=== PATIENT | male | born 1950 | race Caucasian/White ===

== ENCOUNTER 2019-07-14 13:33 | Inpatient (IN) | payer OTHER, MEDICARE ==
[~2019-07-14] VITALS: Ht 172.7 cm; Wt 101.6 kg
[~2019-07-14 13:33] MED LIST: ALBIPROI INH; ASPI81CH PO; B Complex1 EAC2 PO; GLIP10 PO; INSDETPEN SC; METF500 PO; MULVITMIND PO; Milk Thistle150 MG PO; ZESTORETIC 20-121 E1 PO; Zestril40 MG PO
[2019-07-14] MEDS ORDERED: METO2.5 PO (13:47)
[2019-07-14] MEDS ORDERED: AMLO10 PO (13:47)
[2019-07-14] MEDS ORDERED: LISI20 PO (13:47)
[2019-07-14] MEDS ORDERED: FINA5 PO (13:47)
[2019-07-14] MEDS ORDERED: THEO300ERA PO (13:48)
[2019-07-14] MEDS ORDERED: Flomax0.4 MG PO (13:48)
[2019-07-14] MEDS ORDERED: FLUT1DIS5 INH (13:48)
[2019-07-14] MEDS ORDERED: FURO40 PO (13:48)
[2019-07-14] MEDS ORDERED: POTCHL20ER PO (13:49)
[2019-07-14] MEDS ORDERED: MILK OF MA400 MG/5 M PO (13:49)
[2019-07-14] MEDS ORDERED: METF500 PO (13:49)
[2019-07-14] MEDS ORDERED: BISA10S (13:49)
[2019-07-14] MEDS ORDERED: ALBU90OI (13:49)
[2019-07-14] MEDS ORDERED: Humalog100 UNIT/1 SC (13:50)
[2019-07-14 14:30] LABS: BASOPHILS ABSOLUTE AUTO 0.03 K/mm3 (0.00-0.23); BASOPHILS PERCENT AUTO 0 % (0-2); EOSINOPHILS ABSOLUTE AUTO 0.26 K/mm3 (0.00-0.68); EOSINOPHILS PERCENT AUTO 2 % (0-6); Hematocrit 33.5 % (37.0-53.0); Hemoglobin 10.4 g/dL (13.5-17.5); IMMATURE GRAN ABSOLUTE AUTO 0.18 K/mm3 (0.00-0.10); IMMATURE GRAN PERCENT AUTO 1 % (0-1); LYMPHOCYTES ABSOLUTE AUTO 1.89 K/mm3 (0.84-5.20); LYMPHOCYTES PERCENT AUTO 11 % (21-46); MONOCYTES ABSOLUTE AUTO 0.95 K/mm3 (0.16-1.47); MONOCYTES PERCENT AUTO 6 % (4-13); Mean Corpuscular Volume 93 fL (80-100); Mean Platelet Volume 10.5 fL (9.1-12.4); NEUTROPHILS ABSOLUTE AUTO 13.26 K/mm3 (1.96-9.15); NEUTROPHILS PERCENT AUTO 80 % (41-73); Platelet Count 388 K/mm3 (150-400); RDW Coefficient Variation 14.1 % (11.7-14.2); RDW Standard Deviation 48.2 fL (35.1-46.3); Red Blood Cell Count 3.59 M/mm3 (4.30-5.90); White Blood Cell Count 16.57 K/mm3 (4.00-11.30)
[2019-07-14 14:50] LABS: Albumin/Globulin Ratio 0.6 (0.8-1.8); Bilirubin, Total 0.2 mg/dL (0.1-1.0); Bun/Creatinine Ratio 34.6 (12.0-20.0); Calcium, Blood 9.2 mg/dL (8.5-10.1); Creatinine, Blood 2.11 mg/dL (0.60-1.20); Globulin, Blood 5.1 g/dL (2.2-4.0); Potassium, Blood 4.6 mmol/L (3.5-5.5); Total Protein, Blood 8.1 g/dL (6.4-8.2)
[2019-07-14 17:20] LABS: Source, Urine Voided
[2019-07-14 17:24] LABS: Bilirubin, Urine Neg (Neg); Blood, Urine Neg (Neg); Glucose Qualitative, Urine Neg (Neg); Ketones, Urine Neg (Neg); Leukocyte Esterase, Urine Neg (Neg); Nitrite, Urine Neg (Neg); Protein, Urine Neg (Neg); Urobilinogen, Urine NORM (Normal)
[2019-07-14 17:29] LABS: Appearance, Urine Clear (Clear); Color, Urine Yellow (P-Yellow)
[2019-07-14] MEDS ORDERED: BASAGLAR K100 UNIT/2 SC (18:22)
--- NOTE | 2019-07-14 20:30 | NUR ---
PT ARRIVED TO ROOM FORM ER VIA STRETCHER. TRANSFERRED TO BED VIA SLIDER SHEET AND ASSIST X4. LEFT HEMIPLEGIA. STATES HE IS BARLEY ABLE TO STAND TO AT [facility]. RECORDS FROM SNF AVAIL AND MEDS UPDATED. MEDS GIVEN ORDERED. IV'S FLUSHED AND PATENT. PT ASSISTED WITH URINAL. 100CC CLEAR YELLOW URINE OUT. PT HUNGRY BUT IS NPO. LIGHTS OFF PER REQUEST AND CALL LIGHT IN REACH.
[2019-07-14] MEDS ORDERED: THEO300ERC PO (22:36)
[2019-07-15 03:49] LABS: Hematocrit 32.7 % (37.0-53.0); Mean Corpuscular HGB 28.8 pg (26.0-34.0); Mean Corpuscular HGB Conc 30.6 g/dL (31.5-36.5); Mean Corpuscular Volume 94 fL (80-100); Mean Platelet Volume 9.9 fL (9.1-12.4); Platelet Count 371 K/mm3 (150-400); RDW Coefficient Variation 14.4 % (11.7-14.2); RDW Standard Deviation 49.4 fL (35.1-46.3); Red Blood Cell Count 3.47 M/mm3 (4.30-5.90); White Blood Cell Count 17.25 K/mm3 (4.00-11.30)
[2019-07-15 04:07] LABS: Albumin/Globulin Ratio 0.6 (0.8-1.8); Bilirubin, Total 0.2 mg/dL (0.1-1.0); Bun/Creatinine Ratio 30.9 (12.0-20.0); Creatinine, Blood 2.2 mg/dL (0.60-1.20); Potassium, Blood 4.5 mmol/L (3.5-5.5)
--- NOTE | 2019-07-15 07:10 | NUR ---
PT SLEPT SECOND HALF OF SHIFT. USED CALL LIGHT MORE THAN APPROPRIATE. HAS BEEN NPO SINCE ARRIVAL TO PCU. NO SIG CHANGES. NO C/O OF N/V, NO STOOL OR DIARRHEA. C/O OF BEING HUNGRY. OCCASIONAL ICE CHIPS PROVIDED TO WET MOUTH. VSS. CBG WNL. BEDSIDE REPORT GIVEN TO RO RITTER.
[2019-07-15 09:48] LABS: Adenovirus Not Detected (NOT DETECT); Bordetella pertussis Not Detected (NOT DETECT); Chlamydophila pneumoniae Not Detected (NOT DETECT); Coronavirus 229E Not Detected (NOT DETECT); Coronavirus HKU1 Not Detected (NOT DETECT); Coronavirus NL63 Not Detected (NOT DETECT); Coronavirus OC43 Not Detected (NOT DETECT); Human Metapneumovirus Not Detected (NOT DETECT); Human Rhinovirus/Enterovirus Not Detected (NOT DETECT); Influenza A Not Detected (NOT DETECT); Influenza A/2009-H1 Not Detected (NOT DETECT); Influenza A/H1 Not Detected (NOT DETECT); Influenza A/H3 Not Detected (NOT DETECT); Influenza B Not Detected (NOT DETECT); Mycoplasma pneumoniae Not Detected (NOT DETECT); Parainfluenza Virus 1 Not Detected (NOT DETECT); Parainfluenza Virus 2 Not Detected (NOT DETECT); Parainfluenza Virus 3 Not Detected (NOT DETECT); Parainfluenza Virus 4 Not Detected (NOT DETECT); Respiratory Syncytial Virus Not Detected (NOT DETECT)
--- NOTE | 2019-07-15 17:39 | NUR ---
SHIFT SUMMARY NO ACUTE CHANGES NOTED FROM ASSESSMENT. PT HAD SPEECH EVAL DONE THIS AM. HE IS NOW ON NECTAR THICK FLUIDS W/PUREE TECTURES. PT WAS STARTED ON CLEAR FLUIDS AND ADVANCED TO FULL LIQUIDS THIS AFTERNOON. HE DENIES NAUSEA/PAIN, NO STOOLS NOTED TODAY, CONDOM CATH WAS PLACED PER PT REQUEST/MD ORDERS. PT REMAINS ON 3L O2 VIA NC, LUNG SOUNDS ARE COARSE, SATS >92%. PT EDUCATED ON DIET RESTRICTIONS, SWALLOW PRECAUTIONS AND REASON FOR TREATMENTS, HE CONTINUES TO TO NOT FOLLOW RESTRICTIONS AND ASKS FOR FOOD CONSTANTLY. MEDICAL LAB SPECIALIST HAS BEEN INSTRUCTED TO LIMIT PT. WCTM AND REPORT TO NOW RN. CALL LIGHT IN REACH AT THIS TIME.
--- NOTE | 2019-07-15 19:30 | NUR ---
REPORT REC'D FROM RO RITTER. PT LYING IN BED, LIGHTS OFF AND TV ON. IV SL'D. DENIES ANY NEEDS AT THIS TIME. VSS. ASSESSMENT NOTED. BED ALARM IN PLACE. CALL LIGHT IN REACH.
[2019-07-16 04:14] LABS: BASOPHILS ABSOLUTE AUTO 0.02 K/mm3 (0.00-0.23); BASOPHILS PERCENT AUTO 0 % (0-2); EOSINOPHILS PERCENT AUTO 0 % (0-6); Hemoglobin 9.9 g/dL (13.5-17.5); IMMATURE GRAN ABSOLUTE AUTO 0.18 K/mm3 (0.00-0.10); IMMATURE GRAN PERCENT AUTO 1 % (0-1); LYMPHOCYTES ABSOLUTE AUTO 0.73 K/mm3 (0.84-5.20); LYMPHOCYTES PERCENT AUTO 5 % (21-46); MONOCYTES ABSOLUTE AUTO 0.27 K/mm3 (0.16-1.47); MONOCYTES PERCENT AUTO 2 % (4-13); Mean Corpuscular HGB 28.5 pg (26.0-34.0); Mean Corpuscular HGB Conc 30.9 g/dL (31.5-36.5); Mean Corpuscular Volume 92 fL (80-100); Mean Platelet Volume 10.3 fL (9.1-12.4); NEUTROPHILS ABSOLUTE AUTO 12.24 K/mm3 (1.96-9.15); NEUTROPHILS PERCENT AUTO 91 % (41-73); Platelet Count 368 K/mm3 (150-400); RDW Coefficient Variation 14.1 % (11.7-14.2); RDW Standard Deviation 47.7 fL (35.1-46.3); Red Blood Cell Count 3.47 M/mm3 (4.30-5.90); White Blood Cell Count 13.44 K/mm3 (4.00-11.30)
[2019-07-16 04:33] LABS: Bun/Creatinine Ratio 36.5 (12.0-20.0); Calcium, Blood 9.4 mg/dL (8.5-10.1); Creatinine, Blood 1.92 mg/dL (0.60-1.20); Potassium, Blood 4.5 mmol/L (3.5-5.5)
--- NOTE | 2019-07-16 05:49 | NUR ---
PT NO LONGER CONTACT ISO. GI PANEL CANCELLED D/T NO STOOL SINCE ARRIVAL. PT HAS NOT C/O N/V AND HAS HAD NO DIARRHEA OR STOOL SINCE ADMIT. HAS BEEN REC'ING ABX. ON ADMISSION, PT REPORTED THAT HE DID NOT GET OUT OF BED AT [facility] EXCEPT TO "BARELY STAND ENOUGH TO TURN AROUND INTO WHEELCHAIR". HAS BEEN "LIFT" STATUS ON ARRIVAL. BUT PT HAS BEEN GETTING HIMSELF TO BEDSIDE AND STANDING TO USE THE URINAL ALL NIGHT. THE ONLY TIME HE USES THE CALL LIGHT THIS SHIFT IS FOR SOMETHING FROM THE PANTRY. THE BED ALARM HAS REMAINED ON, HE CONT'S TO SET IT OFF. HE HAS BEEN TOLD IF IT CONT'S WE WILL PUT THAT THIRD RAIL BACK UP FOR SAFETY REASONS. PT SITTING UP IN BED WITH CUP OF ICE. AM MEDS GIVEN. PT DENIES ANY ADD'L NEEDS. [employer] BRIEF PROVIDED, FLOOR CLEANED OF URINE SPLATTER, BABY WIPES FOR LEGS. CALL LIGHT IN REACH. WILL CONT TO MONITOR, DOCUMENT ANY CHANGES AND REPORT TO DAY SHIFT RN.
[2019-07-16] MEDS ORDERED: ALBU2.5V5 (10:13)
[2019-07-16] MEDS ORDERED: LEVO750 PO (10:14)
[2019-07-16] MEDS ORDERED: PRED20 (10:14)
[2019-07-16] MEDS ORDERED: METR500 PO (10:14)
[2019-07-16] MEDS ORDERED: ACET325 PO (10:15)
--- NOTE | 2019-07-16 13:03 | NUR ---
DISCHARGE REPORT CALLED TO [facility]. ALL QUESTIONS ANSWERED. AWAITING TRANSPORT. BELONGINGS GATHERED AND WITH PATIENT.
== END 2019-07-16 13:29 | DRG 683 ==
LOC: ER 13:33 → PCU 18:29
PROVIDERS: Emergency Medicine; Internal Medicine; ADMIT Internal Medicine
DX: N17.9 Acute kidney failure, unspecified (principal); J44.1 Chronic obstructive pulmonary disease with (acute) exacerbation; K52.9 Noninfective gastroenteritis and colitis, unspecified; N18.3 Chronic kidney disease, stage 3 (moderate); E11.22 Type 2 diabetes mellitus with diabetic chronic kidney disease; I12.9 Hypertensive chronic kidney disease with stage 1 through stage 4 chronic kidney disease, or unspecified chronic kidney disease; E78.5 Hyperlipidemia, unspecified; F31.9 Bipolar disorder, unspecified; F43.10 Post-traumatic stress disorder, unspecified; B18.2 Chronic viral hepatitis C; Z87.891 Personal history of nicotine dependence; Z99.81 Dependence on supplemental oxygen
CPT/HCPCS: 0099U; 36415; 71045; 74177; 80048; 80053; 81003; 82947; 83605; 83690; 83880; 85025; 85027; 92610; 94640; 94760; 96365-59; 96375; 99285-25; A9270-GY; J1650; J1956; J2930; J7030; Q9967

== ENCOUNTER → 2019-07-21 | Outpatient (CLI) | payer MEDICARE ==
[~2019-07-21] MED LIST changes: +ACET325 PO; +ALBU2.5V5; +ALBU90OI; +AMLO10 PO; +BASAGLAR K100 UNIT/2 SC; +BISA10S; +FINA5 PO; +FLUT1DIS5 INH; +FURO40 PO; +Flomax0.4 MG PO; +Humalog100 UNIT/1 SC; +LEVO750 PO; +LISI20 PO; +METO2.5 PO; +METR500 PO; +MILK OF MA400 MG/5 M PO; +POTCHL20ER PO; +PRED20; +THEO300ERA PO; +THEO300ERC PO
[2019-07-21 12:50] LABS: Bun/Creatinine Ratio 28.6 (12.0-20.0); Creatinine, Blood 1.26 mg/dL (0.60-1.20); Potassium, Blood 3.1 mmol/L (3.5-5.5)
== END ==
LOC: LAB RH 06:00 → EDSTATUS 12:05 → LAB RH 12:06
PROVIDERS: Family Medicine
DX: I11.9 Hypertensive heart disease without heart failure (principal)
CPT/HCPCS: 36415; 80048

== ENCOUNTER → 2019-09-01 | Outpatient (CLI) | payer MEDICARE ==
[2019-09-01 14:09] LABS: Bilirubin, Urine Neg (Neg); Blood, Urine 4+ (Neg); Glucose Qualitative, Urine 4+ (Neg); Ketones, Urine Neg (Neg); Leukocyte Esterase, Urine Neg (Neg); Nitrite, Urine Neg (Neg); Protein, Urine Neg (Neg); Specific Gravity, Urine 1.005 (1.003-1.022); Urobilinogen, Urine NORM (Normal)
[2019-09-01 14:47] LABS: Appearance, Urine Clear (Clear); Color, Urine Pale Yellow (P-Yellow)
[2019-09-01 14:48] LABS: White Blood Cells, Urine 0-2 /hpf (0-5)
[2019-09-01 14:49] LABS: Bacteria Rare /hpf; Squamous Epithelial Cells Not Seen /hpf (Few)
== END | disposition home or self-care (01) ==
LOC: EDSTATUS 11:27 → LAB RH 13:20
PROVIDERS: Family Medicine
DX: N39.0 Urinary tract infection, site not specified (principal)
CPT/HCPCS: 81001

== ENCOUNTER → 2019-09-04 | Outpatient (CLI) | payer MEDICARE ==
[2019-09-04 12:34] LABS: Albumin, Blood 3.2 g/dL (3.4-5.0); Albumin/Globulin Ratio 0.6 (0.8-1.8); Bilirubin, Total 0.3 mg/dL (0.1-1.0); Bun/Creatinine Ratio 21.4 (12.0-20.0); Calcium, Blood 9.7 mg/dL (8.5-10.1); Creatinine, Blood 1.31 mg/dL (0.60-1.20); Potassium, Blood 2.8 mmol/L (3.5-5.5); Total Protein, Blood 8.2 g/dL (6.4-8.2)
== END | disposition home or self-care (01) ==
LOC: LAB RH 09:22 → EDSTATUS 11:03
PROVIDERS: Family Medicine
DX: E11.65 Type 2 diabetes mellitus with hyperglycemia (principal); R79.89 Other specified abnormal findings of blood chemistry
CPT/HCPCS: 80053

== ENCOUNTER → 2019-09-15 | Outpatient (CLI) | payer MEDICARE ==
[2019-09-15 14:57] LABS: Hematocrit 36.7 % (37.0-53.0); Hemoglobin 11.3 g/dL (13.5-17.5); Mean Corpuscular HGB 25.5 pg (26.0-34.0); Mean Corpuscular HGB Conc 30.8 g/dL (31.5-36.5); Mean Corpuscular Volume 83 fL (80-100); Mean Platelet Volume 10.2 fL (9.1-12.4); Platelet Count 458 K/mm3 (150-400); RDW Coefficient Variation 15.2 % (11.7-14.2); Red Blood Cell Count 4.43 M/mm3 (4.30-5.90)
== END | disposition home or self-care (01) ==
LOC: EDSTATUS 12:40 → LAB RH 14:41
PROVIDERS: Family Medicine
DX: E11.65 Type 2 diabetes mellitus with hyperglycemia (principal)
CPT/HCPCS: 83036; 85027

== ENCOUNTER → 2019-09-16 | Outpatient (CLI) | payer MEDICARE ==
[2019-09-16 09:31] LABS: BASOPHILS ABSOLUTE AUTO 0.03 K/mm3 (0.00-0.23); BASOPHILS PERCENT AUTO 0 % (0-2); EOSINOPHILS ABSOLUTE AUTO 0.16 K/mm3 (0.00-0.68); EOSINOPHILS PERCENT AUTO 1 % (0-6); Hematocrit 38.4 % (37.0-53.0); Hemoglobin 11.3 g/dL (13.5-17.5); IMMATURE GRAN ABSOLUTE AUTO 0.05 K/mm3 (0.00-0.10); IMMATURE GRAN PERCENT AUTO 0 % (0-1); LYMPHOCYTES PERCENT AUTO 19 % (21-46); MONOCYTES ABSOLUTE AUTO 0.82 K/mm3 (0.16-1.47); MONOCYTES PERCENT AUTO 7 % (4-13); Mean Corpuscular HGB 24.4 pg (26.0-34.0); Mean Corpuscular HGB Conc 29.4 g/dL (31.5-36.5); Mean Corpuscular Volume 83 fL (80-100); Mean Platelet Volume 9.9 fL (9.1-12.4); NEUTROPHILS ABSOLUTE AUTO 8.17 K/mm3 (1.96-9.15); NEUTROPHILS PERCENT AUTO 72 % (41-73); Platelet Count 443 K/mm3 (150-400); RDW Standard Deviation 45.5 fL (35.1-46.3); Red Blood Cell Count 4.64 M/mm3 (4.30-5.90); White Blood Cell Count 11.43 K/mm3 (4.00-11.30)
== END | disposition home or self-care (01) ==
LOC: LAB RH 08:41 → EDSTATUS 12:41
PROVIDERS: Family Medicine
DX: E11.65 Type 2 diabetes mellitus with hyperglycemia (principal); J44.1 Chronic obstructive pulmonary disease with (acute) exacerbation
CPT/HCPCS: 83036; 85025

== ENCOUNTER → 2019-10-19 | Outpatient (CLI) | payer MEDICARE | END | disposition home or self-care (01) | LOC: LAB RH 09:30 → EDSTATUS 11:55 | PROVIDERS: Family Medicine | DX: J44.1 Chronic obstructive pulmonary disease with (acute) exacerbation (principal) | CPT/HCPCS: 80198 ==

== ENCOUNTER → 2019-11-12 | Outpatient (CLI) | payer MEDICARE ==
[~2019-11-12] MED LIST changes: -ALBU2.5V5; +ALBU90OI INH; +BISA10S PR; +DOXY100 PO; +FLEET ENEMA133 ML PR; +MILK OF MA400 MG/51 PO; +[UNRECOGNIZED DRUG - OTHER] PO
[2019-11-12 19:24] LABS: Bilirubin, Urine Neg (Neg); Blood, Urine Neg (Neg); Glucose Qualitative, Urine Neg (Neg); Ketones, Urine Neg (Neg); Leukocyte Esterase, Urine Neg (Neg); Nitrite, Urine Neg (Neg); Protein, Urine Neg (Neg); Specific Gravity, Urine 1.015 (1.003-1.022); Urobilinogen, Urine NORM (Normal)
[2019-11-12 19:36] LABS: Appearance, Urine Clear (Clear); Color, Urine Yellow (P-Yellow)
== END | disposition home or self-care (01) ==
LOC: EDSTATUS 11:02 → LAB RH 18:20
PROVIDERS: Family Medicine
DX: N39.0 Urinary tract infection, site not specified (principal)
CPT/HCPCS: 81003; 87077; 87086; 87186

== ENCOUNTER → 2019-11-14 | Outpatient (CLI) | payer MEDICARE ==
[2019-11-14 14:56] LABS: BASOPHILS ABSOLUTE AUTO 0.04 K/mm3 (0.00-0.23); BASOPHILS PERCENT AUTO 0 % (0-2); EOSINOPHILS ABSOLUTE AUTO 0.04 K/mm3 (0.00-0.68); EOSINOPHILS PERCENT AUTO 0 % (0-6); Hemoglobin 10.4 g/dL (13.5-17.5); IMMATURE GRAN PERCENT AUTO 1 % (0-1); LYMPHOCYTES ABSOLUTE AUTO 1.65 K/mm3 (0.84-5.20); LYMPHOCYTES PERCENT AUTO 10 % (21-46); MONOCYTES ABSOLUTE AUTO 1.15 K/mm3 (0.16-1.47); MONOCYTES PERCENT AUTO 7 % (4-13); Mean Corpuscular HGB 23.7 pg (26.0-34.0); Mean Corpuscular HGB Conc 30.6 g/dL (31.5-36.5); Mean Corpuscular Volume 78 fL (80-100); Mean Platelet Volume 8.9 fL (9.1-12.4); NEUTROPHILS ABSOLUTE AUTO 12.85 K/mm3 (1.96-9.15); NEUTROPHILS PERCENT AUTO 81 % (41-73); Platelet Count 518 K/mm3 (150-400); RDW Coefficient Variation 17.6 % (11.7-14.2); RDW Standard Deviation 48.7 fL (35.1-46.3); Red Blood Cell Count 4.38 M/mm3 (4.30-5.90); White Blood Cell Count 15.83 K/mm3 (4.00-11.30)
[2019-11-14 15:20] LABS: Alanine Aminotransfer (ALT/SGP 51 U/L (12-78); Albumin/Globulin Ratio 0.6 (0.8-1.8); Alk Phos 184 U/L (50-136); Aspartate Aminotrans (AST/SGOT 53 U/L (12-37); Bilirubin, Total 0.4 mg/dL (0.1-1.0); Blood Urea Nitrogen 51 mg/dL (8-24); Bun/Creatinine Ratio 31.1 (12.0-20.0); CO2, Blood >45 mmol/L (21-32); Calcium, Blood 9.4 mg/dL (8.5-10.1); Chloride, Blood 67 mmol/L (98-108); Creatinine, Blood 1.64 mg/dL (0.60-1.20); Globulin, Blood 5.1 g/dL (2.2-4.0); Glomerular Filtration Rate 44 (60-); Glucose, Blood 164 mg/dL (70-99); Sodium, Blood 122 mmol/L (136-145); Total Protein, Blood 8.1 g/dL (6.4-8.2)
[2019-11-14 15:21] LABS: Potassium, Blood 1.7 mmol/L (3.5-5.5)
== END | disposition home or self-care (01) ==
LOC: EDSTATUS 10:43 → LAB RH 14:30
PROVIDERS: Family Medicine
DX: J44.1 Chronic obstructive pulmonary disease with (acute) exacerbation (principal); E11.65 Type 2 diabetes mellitus with hyperglycemia; D64.9 Anemia, unspecified
CPT/HCPCS: 80053; 82140; 85025

== ENCOUNTER → 2019-11-16 | Outpatient (CLI) | payer MEDICARE ==
[2019-11-16 11:08] LABS: Anion Gap Unable to Calculate mmol/L (6-16); Blood Urea Nitrogen 35 mg/dL (8-24); Bun/Creatinine Ratio 26.5 (12.0-20.0); Calcium, Blood 9.5 mg/dL (8.5-10.1); Chloride, Blood 75 mmol/L (98-108); Creatinine, Blood 1.32 mg/dL (0.60-1.20); Glomerular Filtration Rate 57 (60-); Glucose, Blood 47 mg/dL (70-99); Sodium, Blood 132 mmol/L (136-145)
[2019-11-16 11:09] LABS: CO2, Blood >45 mmol/L (21-32)
== END | disposition home or self-care (01) ==
LOC: LAB RH 10:30 → EDSTATUS 10:44
PROVIDERS: Family Medicine
DX: E87.5 Hyperkalemia (principal)
CPT/HCPCS: 80048

== ENCOUNTER → 2019-11-17 | Outpatient (CLI) | payer MEDICARE ==
[2019-11-17 15:58] LABS: Blood Urea Nitrogen 28 mg/dL (8-24); Bun/Creatinine Ratio 23.3 (12.0-20.0); Chloride, Blood 76 mmol/L (98-108); Glomerular Filtration Rate >60 (60-); Glucose, Blood 202 mg/dL (70-99); Potassium, Blood 2.6 mmol/L (3.5-5.5); Sodium, Blood 128 mmol/L (136-145)
[2019-11-17 16:13] LABS: Anion Gap Unable to Calculate mmol/L (6-16); CO2, Blood >45 mmol/L (21-32)
== END | disposition home or self-care (01) ==
LOC: EDSTATUS 10:45 → LAB RH 15:37
PROVIDERS: Family Medicine
DX: E11.65 Type 2 diabetes mellitus with hyperglycemia (principal); J44.1 Chronic obstructive pulmonary disease with (acute) exacerbation
CPT/HCPCS: 80048; 83735

== ENCOUNTER → 2019-11-18 | Outpatient (CLI) | payer MEDICARE ==
[2019-11-18 11:14] LABS: Anion Gap 6 mmol/L (6-16); Blood Urea Nitrogen 26 mg/dL (8-24); Bun/Creatinine Ratio 21.7 (12.0-20.0); CO2, Blood 44 mmol/L (21-32); Calcium, Blood 9.2 mg/dL (8.5-10.1); Chloride, Blood 82 mmol/L (98-108); Glomerular Filtration Rate >60 (60-); Glucose, Blood 160 mg/dL (70-99); Potassium, Blood 2.6 mmol/L (3.5-5.5); Sodium, Blood 132 mmol/L (136-145)
== END | disposition home or self-care (01) ==
LOC: EDSTATUS 10:46 → LAB RH 10:51
PROVIDERS: Family Medicine
DX: E87.6 Hypokalemia (principal); R79.81 Abnormal blood-gas level
CPT/HCPCS: 80048

== ENCOUNTER 2019-12-26 17:13 | Inpatient (IN) | payer OTHER, MEDICARE ==
[~2019-12-26] VITALS: Ht 167.6 cm; Wt 100.3 kg
[2019-12-26 17:51] LABS: BASOPHILS ABSOLUTE AUTO 0.05 K/mm3 (0.00-0.23); BASOPHILS PERCENT AUTO 0 % (0-2); EOSINOPHILS ABSOLUTE AUTO 0.01 K/mm3 (0.00-0.68); EOSINOPHILS PERCENT AUTO 0 % (0-6); Hematocrit 33.8 % (37.0-53.0); Hemoglobin 9.5 g/dL (13.5-17.5); IMMATURE GRAN ABSOLUTE AUTO 0.15 K/mm3 (0.00-0.10); IMMATURE GRAN PERCENT AUTO 1 % (0-1); LYMPHOCYTES ABSOLUTE AUTO 0.42 K/mm3 (0.84-5.20); LYMPHOCYTES PERCENT AUTO 2 % (21-46); MONOCYTES ABSOLUTE AUTO 0.94 K/mm3 (0.16-1.47); MONOCYTES PERCENT AUTO 4 % (4-13); Mean Corpuscular HGB 21.8 pg (26.0-34.0); Mean Corpuscular HGB Conc 28.1 g/dL (31.5-36.5); Mean Corpuscular Volume 78 fL (80-100); Mean Platelet Volume 9.8 fL (9.1-12.4); NEUTROPHILS ABSOLUTE AUTO 23.86 K/mm3 (1.96-9.15); NEUTROPHILS PERCENT AUTO 94 % (41-73); Platelet Count 534 K/mm3 (150-400); RDW Standard Deviation 50.7 fL (35.1-46.3); Red Blood Cell Count 4.35 M/mm3 (4.30-5.90); White Blood Cell Count 25.43 K/mm3 (4.00-11.30)
[2019-12-26 18:22] LABS: Alanine Aminotransfer (ALT/SGP 35 U/L (12-78); Albumin, Blood 3.1 g/dL (3.4-5.0); Albumin/Globulin Ratio 0.6 (0.8-1.8); Alk Phos 194 U/L (50-136); Anion Gap 6 mmol/L (6-16); Aspartate Aminotrans (AST/SGOT 20 U/L (12-37); Bilirubin, Total 0.3 mg/dL (0.1-1.0); Blood Urea Nitrogen 28 mg/dL (8-24); Bun/Creatinine Ratio 26.7 (12.0-20.0); CO2, Blood 31 mmol/L (21-32); Calcium, Blood 9.4 mg/dL (8.5-10.1); Chloride, Blood 96 mmol/L (98-108); Creatinine, Blood 1.05 mg/dL (0.60-1.20); Globulin, Blood 5.1 g/dL (2.2-4.0); Glomerular Filtration Rate >60 (60-); Glucose, Blood 263 mg/dL (70-99); Potassium, Blood 4.7 mmol/L (3.5-5.5); Sodium, Blood 133 mmol/L (136-145); Total Protein, Blood 8.2 g/dL (6.4-8.2); Troponin I <0.015 ng/mL (0.000-0.040)
[2019-12-26] MEDS ORDERED: BASAGLAR K100 UNIT/4 SC (20:39)
[2019-12-26] MEDS ORDERED: HUMALOG KW100 UNIT/1 SC (20:47)
[2019-12-26 23:36] LABS: PCO2 Arterial 54.8 mmHg (35-45); PO2 Arterial 60.9 mmHg (80-100); pH Blood Arterial 7.39 (7.35-7.45)
[2019-12-27] MEDS ORDERED: LEVO750 PO (03:13)
[2019-12-27] MEDS ORDERED: GUAI600T33 PO (03:18)
--- NOTE | 2019-12-27 03:23 | NUR ---
ADMIT NOTE PATIENT ADMITED EARLIER THIS SHIFT FROM THE ER AND WAS TRANSFERED OVER VIA SLIDER SHEET. PATIENT ARRIVED TO THE UNIT ON BIPAP. PATIENT VERY SLEEPY BUT WOULD STIR WITH PAIN. PATIENT ALSO WOULD OPEN EYES BRIEFLY TO LOUD VERBAL STIMULI. PATIENT VERY SLEEPY THROUGHOUT MOST OF THE NIGHT SO FAR. HOWEVER AT APPROX 0300 PATIENT PULLED OFF HIS BIPAP AND WAS ALERT AND TALKING WITH STAFF. PATIENT ABLE TO STATE WHERE HE IS WELL THE YEAR AND WHERE HE IS CURRENTLY LIVING. PATIENT VERY SOB WHEN OFF BIPAP WITH RESPIRATIONS IN THE 30'S. PATIENT EDUCATED ON THE USE OF THE BIPAP AND PATIENT ALLOWED BIPAP TO BE PLACED BACK ON. HOWEVER, AT THIS TIME PATIENT REQUESTED THE BIPAP TO BE REMOVED AGAIN EVEN WITH EDUCATION. PATIENT CURRENTLY ON 4L VIA N/C AND IS RESTING IN BED AWAKE. WILL CONTINUE TO MONITOR.
[2019-12-27 04:18] LABS: Hematocrit 32.6 % (37.0-53.0); Hemoglobin 9.2 g/dL (13.5-17.5); Mean Corpuscular HGB Conc 28.2 g/dL (31.5-36.5); Mean Corpuscular Volume 78 fL (80-100); Mean Platelet Volume 9.7 fL (9.1-12.4); Platelet Count 491 K/mm3 (150-400); RDW Standard Deviation 50.9 fL (35.1-46.3); Red Blood Cell Count 4.18 M/mm3 (4.30-5.90); White Blood Cell Count 16.67 K/mm3 (4.00-11.30)
[2019-12-27 04:44] LABS: Anion Gap 3 mmol/L (6-16); Blood Urea Nitrogen 28 mg/dL (8-24); Bun/Creatinine Ratio 22.8 (12.0-20.0); CO2, Blood 34 mmol/L (21-32); Chloride, Blood 98 mmol/L (98-108); Creatinine, Blood 1.23 mg/dL (0.60-1.20); Glomerular Filtration Rate >60 (60-); Glucose, Blood 289 mg/dL (70-99); Potassium, Blood 4.5 mmol/L (3.5-5.5); Sodium, Blood 135 mmol/L (136-145)
--- NOTE | 2019-12-27 05:43 | NUR ---
UPDATE WAITER/WAITRESS HEAD REPORTED THAT PATIENT HAD A 9 BEAT RUN OF VTAMARTIN. RN IN ROOM AT THE TIME. PATIENT WAS ASYMPTOMATIC.
--- NOTE | 2019-12-27 07:55 | NUR ---
SHIFT SUMMARY PATIENT MORE AWAKE AND ALERT THIS MORNING. PATIENT FREQUENTLY PULLED THE BIPAP MASK OFF AND PATIENT WOULD BE PLACED ON O2 WHICH ENDED NEEDING TO BE 15L VIA HIGH FLOW N/C TO MAINTAIN O2 SATURATION. PATIENT TOLERATED BEING OFF BIPAP ON 15L FOR APPROX 15 MINUTES BEFORE PATIENT BECAME SO SOB THAT HE ALLOWED STAFF TO PLACE BIPAP BACK ON. PATIENT THEN FELL ASLEEP AGAIN WITH THE BIPAP ON AT ABOUT 0530. PATIENT HAS BEEN ASLEEP SINCE. SON CURRENTLY IN ROOM WITH PATIENT WHO IS SLEEPING. REPORT GIVEN TO ONCOMING RN.
[2019-12-27 15:57] LABS: Percent Saturation 2.9 % (20.0-50.0)
[2019-12-27 16:19] LABS: Thyroid Stimulating Hormone 0.821 uIU/mL (0.360-4.800)
--- NOTE | 2019-12-27 18:21 | NUR ---
SHIFT NOTE PT HAS BEEN ALERT, CONFUSED T/O THE DAY. PT HAS BEEN RESTING WELL IN BED. PT IS AWARE THAT HE IS NPO STS "I DON'T GIVE A DAMN", DESPITE EDUCATION THAT PT CAN NOT EAT HE HAS BEEN ASPIRATING. PT HAS REFUSED BIPAP T/O MOST OF THE DAY, DID AGREE TO ALLOW IT BEING PLACED AROUND 1400 BY RESPIRATORY. CARDIZEM WAS D/C AND LOPRESSOR WAS BEGAN WHICH IS PROVIDING BETTER RATE CONTROL. PT IS SCREAMING AT STAFF AT THE TIME OF THIS NOT AND REFUSING BIPAP AGAIN.
--- NOTE | 2019-12-28 05:55 | NUR ---
SHIFT SUMMARY PATIENT VERY AGITATED AND UPSET THROUGHOUT THE NIGHT ABOUT NOT BEING ABLE TO EAT OR DRINK. PATIENT FREQUENTLY CALLING STAFF INTO THE ROOM TO REQUEST FOOD OR DRINK. PATIENT EDUCATED ON REASON FOR NPO STATUS AND PATIENT CONTINUES TO STATE, "I DON'T CARE, I DON'T CARE IF I CAN'T BREATH!" AT ONE POINT PATIENT STATED HE WOULD, "GET UP AND WALK DOWN THE TIPTON AND BEAT EVERYONE UP." PATIENT REFUSING THE BIPAP AND HAS BEEN ON THE AIRVO THROUGHOUT THE NIGHT. PATIENT NOT RECEPTIVE TO ANY EDUCATION TONIGHT. PATIENT REPOSITIONED THROUGHOUT THE NIGHT. PATIENT PROVIDED MOUTH SWABS FREQUENTLY THROUGHOUT THE NIGHT. PATIENT APPEARED TO NAP ON AND OFF THROUGHOUT THE NIGHT. CALL LIGHT WITHIN REACH. WILL CONTINUE TO MONITOR PATIENT AND REPORT TO ONCOMING RN.
[2019-12-28 09:08] LABS: Anion Gap 4 mmol/L (6-16); Blood Urea Nitrogen 37 mg/dL (8-24); Bun/Creatinine Ratio 30.3 (12.0-20.0); CO2, Blood 35 mmol/L (21-32); Calcium, Blood 9.2 mg/dL (8.5-10.1); Chloride, Blood 102 mmol/L (98-108); Creatinine, Blood 1.22 mg/dL (0.60-1.20); Glomerular Filtration Rate >60 (60-); Glucose, Blood 155 mg/dL (70-99); Magnesium, Blood 2.5 mg/dL (1.6-2.4); Sodium, Blood 141 mmol/L (136-145)
[2019-12-28 12:39] LABS: BASOPHILS ABSOLUTE AUTO 0.02 K/mm3 (0.00-0.23); BASOPHILS PERCENT AUTO 0 % (0-2); EOSINOPHILS ABSOLUTE AUTO 0.09 K/mm3 (0.00-0.68); EOSINOPHILS PERCENT AUTO 1 % (0-6); Hematocrit 31.5 % (37.0-53.0); Hemoglobin 8.8 g/dL (13.5-17.5); IMMATURE GRAN ABSOLUTE AUTO 0.05 K/mm3 (0.00-0.10); IMMATURE GRAN PERCENT AUTO 0 % (0-1); LYMPHOCYTES ABSOLUTE AUTO 1.49 K/mm3 (0.84-5.20); LYMPHOCYTES PERCENT AUTO 12 % (21-46); MONOCYTES ABSOLUTE AUTO 1.16 K/mm3 (0.16-1.47); MONOCYTES PERCENT AUTO 9 % (4-13); Mean Corpuscular HGB 21.7 pg (26.0-34.0); Mean Corpuscular HGB Conc 27.9 g/dL (31.5-36.5); Mean Corpuscular Volume 78 fL (80-100); NEUTROPHILS ABSOLUTE AUTO 9.48 K/mm3 (1.96-9.15); NEUTROPHILS PERCENT AUTO 77 % (41-73); Platelet Count 500 K/mm3 (150-400); RDW Coefficient Variation 18.1 % (11.7-14.2); RDW Standard Deviation 50.5 fL (35.1-46.3); Red Blood Cell Count 4.05 M/mm3 (4.30-5.90); White Blood Cell Count 12.29 K/mm3 (4.00-11.30)
--- NOTE | 2019-12-28 19:36 | NUR ---
SHIFT SUMMARY PT WAS STARTED ON A PUREE DIET WITH PUDDING THICK LIQUIDS, PT WAS EDUCATED ABOUT ASPIRATION PRECAUTIONS AND INSTRUCTIONS TO TAKE SMALL BITES & EAT SLOW, HE HAS BEEN NON COMPLIANT WITH MULTIPLE REMINDERS, PT'S RESP STATUS HAS DECREASED THIS AFTERNOON, PT WAS PLACED BACK ON BIPAP, DINNER TRAY WAS HELD, NPO ADVISED. REPORT GIVEN TO WINTER RN, CALL LIGHT IN REACH
--- NOTE | 2019-12-29 02:51 | NUR ---
69 year old [place] resident of [facility] admitted 12/26/19 with acute on chronic resp failure aspiration pneumona. PT on oxygen via airbo or bipap with high flow oxygen required to keep sats greater than 90%. PT is on puree diet with honey thick liquids. He is on 1500 ml fluid restriction & he is very agressive concerning wanting to eat & drink. He threatens staff repeatedly & is verbally abusive. Says he "is going to hit staff if they don't comply with demands for oral intake. Fed yogut applesauce & magic cup thickened to at least honey thick. Fluids via spoon. PT tolerates honey tick intake but has occasional cough nonproductive. HX of schitzophrenia & Bipolar disorder with behaviors noted attention seeking. Speech therapy eval due today.
[2019-12-29 05:59] LABS: BASOPHILS ABSOLUTE AUTO 0.04 K/mm3 (0.00-0.23); BASOPHILS PERCENT AUTO 0 % (0-2); EOSINOPHILS ABSOLUTE AUTO 0.33 K/mm3 (0.00-0.68); EOSINOPHILS PERCENT AUTO 3 % (0-6); Hematocrit 33.5 % (37.0-53.0); Hemoglobin 9.4 g/dL (13.5-17.5); IMMATURE GRAN ABSOLUTE AUTO 0.03 K/mm3 (0.00-0.10); IMMATURE GRAN PERCENT AUTO 0 % (0-1); LYMPHOCYTES ABSOLUTE AUTO 1.97 K/mm3 (0.84-5.20); LYMPHOCYTES PERCENT AUTO 19 % (21-46); MONOCYTES ABSOLUTE AUTO 1.33 K/mm3 (0.16-1.47); MONOCYTES PERCENT AUTO 13 % (4-13); Mean Corpuscular HGB Conc 28.1 g/dL (31.5-36.5); Mean Corpuscular Volume 78 fL (80-100); Mean Platelet Volume 9.8 fL (9.1-12.4); NEUTROPHILS ABSOLUTE AUTO 6.97 K/mm3 (1.96-9.15); NEUTROPHILS PERCENT AUTO 65 % (41-73); Platelet Count 468 K/mm3 (150-400); RDW Coefficient Variation 17.9 % (11.7-14.2); RDW Standard Deviation 51.3 fL (35.1-46.3); Red Blood Cell Count 4.28 M/mm3 (4.30-5.90); White Blood Cell Count 10.67 K/mm3 (4.00-11.30)
[2019-12-29 06:14] LABS: Albumin, Blood 2.8 g/dL (3.4-5.0); Anion Gap 3 mmol/L (6-16); Blood Urea Nitrogen 41 mg/dL (8-24); Bun/Creatinine Ratio 32.8 (12.0-20.0); CO2, Blood 37 mmol/L (21-32); Calcium, Blood 9.1 mg/dL (8.5-10.1); Chloride, Blood 100 mmol/L (98-108); Creatinine, Blood 1.25 mg/dL (0.60-1.20); Glomerular Filtration Rate >60 (60-); Glucose, Blood 147 mg/dL (70-99); Magnesium, Blood 2.6 mg/dL (1.6-2.4); Phosphorus, Blood 3.3 mg/dL (2.5-4.9); Potassium, Blood 3.5 mmol/L (3.5-5.5); Sodium, Blood 140 mmol/L (136-145)
--- NOTE | 2019-12-29 12:55 | NUR ---
CONDOM CATH PLACED AT THIS TIME PER MD ORDERS. PT TOLERATED WNL.
--- NOTE | 2019-12-29 16:28 | NUR ---
INITIAL PAL CARE CONSULT & VISIT - Summary of visit and case conferences with RN, , Pt, , son and interior plant caretaker over past two hours - I was called by pt's RN to request semi-urgent visit to establish goals of care with pt who was admitted here from , where he has resided for approx one year. Pt is a 69 year old male admitted with acute on chronic respiratory and heart failure, sepsis, a-fib. During hospitalization he has been found to have dysphagia with unsafe swallow and is NPO. Echo revealed severe aortic stenosis, mod mitral valve regurgition and mild to moderate systolic HF with an EF of 37%. There was no comparison echo. Pt is not ambulatory and has been very unhappy about being NPO. When I arrived to his room and asked permission to speak to him and to his after our visit, he nodded yes. On my first visit, he communicated with nods only and no verbalization. He is on O2 via airvo. His color is ashen thurman. He is very large and very weak. He is not moving in bed on his own. He confirms during my first visit and again on my second visit with RTPinky, present that he wants the top priority of his care to be comfort and being allowed to eat. On both visits I discussed the probability & consequences of eating as choking, aspiration, worsening respiratory failure and hypoxia, increased work load of the heart and worsening heart failure with as a possibility. Pt again indicated that he wants us to place him on comfort care. I explained that this meant we would discontinue medical care aimed at reversing his current multiple life threatening health issues and would focus on providing comfort and treating his distressing s/s. Pt nodded that this is what he would like, including food MARY. He eventually also verbalized that he wanted to eat and he wanted comfort care. Discussed all of the above with , eventually his son and DR. Grajeda to put in comfort care orders. We discussed continuing diuretics as a comfort measure, respiratory support as pt desires with O2, PO BP meds if pt so desires. is supportive of pt's wishes but surprised as she had seen him yesterday and he did not express this to her. She has not seen him frequently in the past year because she does not drive and as of Spring, Covid restrictions have been in place at [facility]. She states son, Trav, had planned to discuss all of this with her but had not been able to yet. In speaking with pt's son, he is also supportive of pt's wishes and is working towards getting off work early to come visit. Pt's RN and charge nurse updated on plan of care and conversations with family and DRJeanie Plan to f/u tomorrow with comfort care visit. Residential Electrician informed of above with request for visit to pt when schedule allowed.
--- NOTE | 2019-12-29 18:09 | NUR ---
SHIFT SUMMARY PT HAS TRANSITIONED TO COMFORT CARE TODAY. PALLIATIVE CARE HAS SPOKE WITH FAMILY AND THE PT. HE AGRESS TO ALL TERMS AND CIRMUMSTANCES. PT HAS BEEN VERY DEMANDING, NON-COMPLIANT & THREATENING TO STAFF WHEN HIS DEMANDS ARE NOT MET. PT DENIES PAIN OR ANXIETY THIS AFTERNOON AND HE HAS BEEN GIVEN FOOD PER HIS WISHES, BED ALARM REMAINS IN PLACE FOR SAFETY, AIRVO CONTINUES FOR PT'S COMFORT. CALL LIGHT IN REACH, WILL REPORT TO NOC RN.
--- NOTE | 2019-12-29 20:53 | NUR ---
REVIEWED LASIX WILL ASSIST IN RR OF 28. REFUSED ANY ADDITIONAL MED TO ASSIST IN CALMER BREATHING. DENIES PAIN . REQUESTS TO BE FED WHOLE APPLE SAUCE AND NO CHOCKING , BLANKETS FOR WARMTH. REQUESTS TO BE HANDED PLAIN SMALL PIECES OF ROAST BEEF , NO SAUCE , NO BREAD. WILL OBSERVE NECESSARY
--- NOTE | 2019-12-30 01:48 | NUR ---
EATING NON STOP UNTIL ABOUT MID NOC THEN REPORTING SUDDEN PAIN RT HIP. MORE TACHEPNEC ESCALATES W/ ANXIETY AND YELLING OUT. MEDS GIVEN NEEDED FOR BEST COMFORT.. DOZING OFF TO SLEEP AT SHORT INTERVALS. BREATHING EASIER WHEN RELAXED , BUT RR 24 AND ACCESSORY MUSCLE USE WHEN ASLEEP.
--- NOTE | 2019-12-30 02:38 | NUR ---
TRYING TO CLIMB OUT OF BED AND YELLING CONSTANTLY, REMOVES AIRVO AND COMBATIVE WHEN TRYING TO GET BACK ON., CONFUSED CONVERSATION. AIR HUNGER AND RESTLESS TACHEPNEA OF 32 RR. ROXINOL LIQUID W/O DIFFICULTY
--- NOTE | 2019-12-30 05:47 | NUR ---
GOOD BALANCE OF PAIN MED AND ANTI ANXIETY AT THIS TIME. CONDOM CATH W/ APPROX 2000 ML TONIGHT. 1 STOOL SMEAR / BROWN. QUICK SHALLOW BREATHS RR 28 AT REST. NO EATING SINCE MID NOC
--- NOTE | 2019-12-30 07:49 | NUR ---
PT SLIGHTLY RESTLESS WHICH RESOLVED WITH REPOSITIONING, ROXINOL WAS ADMINISTERED FOR NOTED AIR HUNGER
--- NOTE | 2019-12-30 10:17 | NUR ---
Spiritual care visit conducted. Patient is lying in bed and non-responsive. Patient's spouse, Stephanie, and son, Pedro and Bo who was raised by patient are present in the rm. I conduct a life review of patient, and provide prayer, a calming presence and anticipatory grief support. Family are grieving appropriately and and show signs of increased peace. I will continue to remain available to patient and family.
--- NOTE | 2019-12-30 11:03 | NUR ---
PAL CARE COMFORT CARE VISIT - Introduced myself to pt's and son, who I had spoken to yesterday by phone. They are at bedside, tearful. Pt appears comfortable with exception of increased respiratory efforts. Family grateful that he is here and that they are able to visit him freely. [place]. Pt in bed, HOB elev, airvo in place. He's unresponsive and appears imminent. Water brought to and son. Time spent with them talking about pt's decisions made yesterday and their support of him. Support offered and plan to return later for f/u visit made with family.
--- NOTE | 2019-12-30 12:43 | NUR ---
supportive visit to family with physician. comfort cart ordered.
--- NOTE | 2019-12-30 14:10 | NUR ---
[facility] CARE COMFORT CARE VISIT - Second visit today. Pt having apnic episodes at this time with RR 6-10/min currently. Educated pt's sons and on progression of dying and s/s they are seeing now. Pt is having excessive secretions with foam filling mouth and spilling out. Suctioned pt's mouth and educated and sons on use call light to request RN for assist with suctioning or use of oral suction if they prefered to do it themselves. Pt cont to appear very comfortable and relaxed. No agitation, anxiety or pain noted in nonverbal behaviors. He is very sitll with lengthening periods of apnea. Son asking, "how long?". I advised that my best guess is hours or less. Pt appears imminent. Discussed continuing to talk to him and each other, with expectation that on some level he can hear them. Support offered. Reported to relief RN on my assessment, visit and interventions.
--- NOTE | 2019-12-30 14:22 | NUR ---
ORAL CARE AND SUCTIONING PERFORMED
--- NOTE | 2019-12-30 14:55 | NUR ---
TOD 1447, ABSENCE OF APICAL PULSE NOTED BY TWO RNs LISTENING FOR 60 SECONDS EACH. MILVIA IS AT BEDSIDE WITH FAMILY. AWAITING CONFIRMATION OF WHICH HOME FAMILY WOULD LIKE PT TRANSPORTED TO
== END 2019-12-30 16:51 | DRG 871 ==
LOC: ER 17:13 → PCU 20:01
PROVIDERS: Emergency Medicine; Internal Medicine; Nurse Practitioner Acute Care; ADMIT Internal Medicine
PROC: 5A09357 Assistance with Respiratory Ventilation, Less than 24 Consecutive Hours, Continuous Positive Airway Pressure (ICD-10-PCS; principal; 2019-12-26)
DX: A41.9 Sepsis, unspecified organism (principal); J96.01 Acute respiratory failure with hypoxia; J69.0 Pneumonitis due to inhalation of food and vomit; I50.21 Acute systolic (congestive) heart failure; I47.2 Ventricular tachycardia; Z20.828 Contact with and (suspected) exposure to other viral communicable diseases; F31.9 Bipolar disorder, unspecified; R65.20 Severe sepsis without septic shock; Z51.5 Encounter for palliative care; F43.10 Post-traumatic stress disorder, unspecified; E78.5 Hyperlipidemia, unspecified; Z87.891 Personal history of nicotine dependence; D50.9 Iron deficiency anemia, unspecified; I11.0 Hypertensive heart disease with heart failure; J44.9 Chronic obstructive pulmonary disease, unspecified; E11.9 Type 2 diabetes mellitus without complications; I08.0 Rheumatic disorders of both mitral and aortic valves; I48.0 Paroxysmal atrial fibrillation
CPT/HCPCS: 36415; 36600; 71045; 80048; 80053; 80069; 82607; 82728; 82746; 82803; 82947; 83540; 83550; 83605; 83735; 83880; 84145; 84443; 84484; 85025; 85027; 87040; 92610; 93005; 93010; 93306; 94640; 94644; 94660; 94762; 96365; 96367; 96375; 96376; 99285-25; A9270-GY; J1100; J1650; J1940; J2060; J2543; J2916; U0002